=== PATIENT | female | born 1970 | race Caucasian/White ===

== ENCOUNTER → 2019-02-20 | Day surgery (SDC) | payer OTHER ==
[~2019-02-20] MED LIST: IV RINGERS,LACTATED 1000ML 1,000 ML IV SCH; LIDOCAINE 2% PF 5 ML VIAL. ONE; PROPOFOL 40 ML IV ONE
[2019-02-20 10:00] VITALS: BP 159/85
--- NOTE | 2019-02-23 14:06 | PATHOLOGY ---
[facility] Accession Number: [id number] . 01 Material submitted: . PART A: colon - RIGHT COLON BIOPSIES. Modifiers: right PART B: colon - TRANSVERSE COLON BIOPSIES. Modifiers: transverse PART C: colon - LEFT COLON BIOPSY. Modifiers: left . 01 Clinical history: . HX ulcerative colitis . 02 Diagnosis: A. Colonic mucosa "right colon biopsies": - No diagnostic changes of inflammatory bowel disease are seen. - There is no evidence of acute cryptitis, granulomas, adenomatous change, dysplasia or malignancy. . B. Colonic mucosa "transverse colon biopsies": - No obvious diagnostic changes of inflammatory bowel disease present. - There is no evidence of acute cryptitis, granulomas, adenomatous change, dysplasia or malignancy. . C. Colonic mucosa "left colon biopsies": - No obvious diagnostic changes of inflammatory bowel disease. - There is no evidence of acute cryptitis, granulomas, adenomatous change, dysplasia or malignancy. (SHA:pit; 02/23/2019) [facility] 02/23/2019 1318 Local . 02 Comment: History of ulcerative colitis noted. (SHA:[facility]; 02/23/2019) . 02 Electronically signed: . Sathya Mojica MD, Pathologist NPI- [id number] . 01 Gross description: . A. Received in formalin labeled "Christina, Neelam, right colon BX, rule out U/C," are multiple segments of johnson soft tissue measuring 2.0 x 0.6 x 0.2 cm in aggregate dimensions. The specimen is filtered and entirely submitted in cassette A1. . B. Received in formalin labeled "Christina, Neelam, transverse colon BX," are multiple segments of johnson soft tissue measuring 1.6 x 0.6 x 0.1 cm in aggregate dimensions. The specimen is filtered and entirely submitted in cassette B1. . C. Received in formalin labeled "Christina, Neelam, left colon BX, rule out UC," are multiple segments of johnson soft tissue measuring 1.4 x 0.6 x 0.1 cm in aggregate dimensions. The specimen is filtered and entirely submitted in cassette C1. (TSD; 02/20/2019) TOB/TOB 02/20/2019 2241 Local . 02 Pathologist provided ICD-10: Z87.19 . 02 CPT . 251188, 491622, 576884 Specimen Comment: A courtesy copy of this report has been sent to [phone], [phone] Specimen Comment: [id number] Specimen Comment: Report sent to / DR OVALLES Specimen Comment: A duplicate report has been generated due to demographic updates. Performed at: 01 [facility] [address], [place] [id number] MD Arsenio Mason MD Phone: [phone] Performed at: 02 [facility] [address] [place], [place] [id number] MD Reji Carlton MD Phone: [phone]
== END ==
LOC: ENDOS 07:19
PROVIDERS: ATTEND Internal Medicine Gastroenterology
DX: R10.32 Left lower quadrant pain (principal); K52.9 Noninfective gastroenteritis and colitis, unspecified; K64.0 First degree hemorrhoids; F15.90 Other stimulant use, unspecified, uncomplicated; F17.210 Nicotine dependence, cigarettes, uncomplicated; Z87.39 Personal history of other diseases of the musculoskeletal system and connective tissue; Z72.89 Other problems related to lifestyle; Z98.890 Other specified postprocedural states; Z90.710 Acquired absence of both cervix and uterus; Z98.51 Tubal ligation status; Z90.49 Acquired absence of other specified parts of digestive tract; Z96.652 Presence of left artificial knee joint
CPT/HCPCS: 45380; 88305; J2001; J2704

== ENCOUNTER 2019-12-21 07:26 | Emergency (ER) | payer OTHER ==
[~2019-12-21] VITALS: Ht 170.2 cm; Wt 84.0 kg
[2019-12-21 07:33] VITALS: BP 164/99
[2019-12-21] MEDS ORDERED: HYDROcodone/APAP 5/325MG 1 TAB TABLET PO ONE (08:00)
--- NOTE | 2019-12-21 08:33 | PHYS DOC ---
Past Medical History Past Medical History: Arthritis Past Surgical History: Appendectomy, Cholecystectomy, , Hip Replacement, Hysterectomy, Knee Replacement, Tonsillectomy Additional Past Surgical Histo: BILATERAL CARPAL TUNNEL Smoking Status: Current Every Day Smoker Alcohol Use: Occasionally General Adult EDM: Chief Complaint: ELBOW PROBLEM HPI: HPI: 49-year-old female past medical history significant for osteoarthritis presents the ED with complaints of right shoulder pain after patient fell last night around 11 PM. Patient states she fell on her right side and is having pain at the tip of her elbow and distal humerus, worsened with extension of the elbow. Is right-hand dominant. No prior injuries to this joint. Denies any radiculopathy. No recent antibiotics or fluoroquinolone use. Has not taken anything for the pain. ROS: Denies associated fever, chills, cough, sore throat, chest pain, dyspnea, radiculopathy, sensory or motor deficits, midline neck pain, headache, loss of consciousness, nausea, vomiting, diarrhea, abdominal or back pain, leg swelling, rash, hemoptysis or other joint involvement. Review of Systems: Review of Systems: Constitutional: Denies fever or chills. [] Eyes: Denies change in visual acuity. [] HENT: Denies nasal congestion or sore throat. [] Respiratory: Denies cough or shortness of breath. [] Cardiovascular: Denies chest pain or edema. [] GI: Denies abdominal pain, nausea, vomiting, Musculoskeletal: Denies back pain Integument: Denies rash. [] Neurologic: Denies headache, focal weakness or sensory changes. [] Psychiatric: Denies depression or anxiety. [] Current Medications: Current Medications Medications (Trade) Dose Ordered Sig/[facility] Start Time Stop Time Status Last Admin Dose Admin Acetaminophen/ Hydrocodone Bitart (Lortab 5/325) 1 tab 1X ONCE 12/21/19 08:00 12/21/19 08:01 DC Allergies: Allergies: Allergies Coded Allergies Type Severity Reaction Last Updated Verified venom-honey bee Allergy Severe SOA, Dizziness 02/20/19 Yes Physical Exam: PE: Constitutional: Well developed, well nourished, no acute distress, non-toxic appearance. [] HENT: Normocephalic, atraumatic, bilateral external ears normal, nose normal. [] Eyes: EOMI, conjunctiva normal, no discharge. [] Neck: Normal range of motion, no tenderness, supple, no stridor. [] Cardiovascular:Heart rate regular rhythm, no murmur [] Lungs & Thorax: Bilateral breath sounds clear to auscultation [] Abdomen: Bowel sounds normal, soft, no tenderness, no masses, no pulsatile masses. [] Skin: Warm, dry, no erythema, no rash. [] Back: No tenderness, no CVA tenderness, ttp over right olecranon-arm bent 90 degrees held across chest, is able to felx/extend/supinate and pronate right elbow - no pain at humeral insertion of biceps, no right shoulder/wrist pain, ttp over anterior distal arm w/no bruising Extremities: No tenderness, no cyanosis, no clubbing, ROM intact, no edema. [] Neurologic: Alert and oriented X 3, normal motor function, normal sensory function, no focal deficits noted. [] Psychologic: Affect normal, judgement normal, mood normal. [] Current Patient Data: Vital Signs: Vital Signs Date Time Temp Pulse Resp B/P (MAP) Pulse Ox O2 Delivery O2 Flow Rate FiO2 12/21/19 07:33 99.0 103 16 164/99 (120) 96 Room Air 99.0 EKG: EKG: [] Radiology/Procedures: Radiology/Procedures: IMAGING REPORT Signed PATIENT: LULU SAXENA ACCOUNT: [id number] : 1970 LOCATION: ER AGE: 49 SEX: F EXAM STATUS: REG ER ORD. PHYSICIAN: KAYLA TERRY DO REASON: fall PROCEDURE: FOREARM RIGHT FOREARM RIGHT, ELBOW RIGHT 3V, HUMERUS RIGHT DATE: 12/21/2019 7:51 AM INDICATION: fall, pain COMPARISON: None. FINDINGS: Bones: There is no evidence of acute fracture or dislocation. Joints: Mild degenerative changes of the acromioclavicular joint. Mild degenerative changes of the elbow joint. There is no joint effusion. Miscellaneous: None. IMPRESSION: No evidence of acute fracture. Electronically signed by: Krystle Adams MD (12/21/2019 8:52 AM) [id number] DICTATED and SIGNED BY: KRYSTLE ADAMS MD DATE: 12/21/19 0852 Course & Med Decision Making: Course & Med Decision Making Pertinent Labs and Imaging studies reviewed. (See chart for details) Concern for traumatic right elbow injury with distal humeral tenderness palpation over distal biceps -likely contusion but cannot exclude any tendon or ligament injury. Strict ED return precautions given for neurologic deficits or severe pain. Will manage conservatively with rice instructions and ibuprofen. encouraged urgent outpatient follow-up with PMD and Ortho. Life-threatening processes were considered but are low suspicion at this time, given history and physical exam. Pt was educated on all prescription medications and adverse effects. All patient's questions were answered and pt was stable at time of discharge. Differential includes fracture, dislocation, laceration, osteomyelitis, compartment syndrome, neurovascular injury or deficit, infection (abscess, cellulitis, septic arthritis), tendon or ligament injury. I spoken with the patient and her caregivers. I explained the patient's conditi on, diagnoses and treatment plan based on the information available to me at this time. I have answered the patient and her caregiver's questions and addressed any concerns. The patient and her caregivers have a good understanding of patient's diagnosis, condition and treatment plan as can be expected at this point. Vital signs have been stable. Patient's condition is stable and appropriate for discharge from the emergency department. Patient will pursue further outpatient evaluation with primary care physician or other designated or consulting physician as outlined in the discharge instructions. The patient and/or caregivers are agreeable to this plan of care and follow-up instructions have been explained in detail. The patient and/or caregivers have received these instructions in written form and have expressed an understanding of the discharge instructions. The patient and/or caregivers are aware that any significant change of condition or worsening of symptoms should prompt immediate return to this or the closest emergency department or call to 911. Sachin Disclaimer: Sachin Disclaimer: This electronic medical record was generated, in whole or in part, using a voice recognition dictation system. Departure Departure Impression: Primary Impression: Elbow pain, right Disposition: 01 HOME, SELF-CARE Condition: STABLE Referrals: SHRUTI OVALLES (PCP) Patient Instructions: Elbow Contusion Additional Instructions: Marcos Narvaez MD Orthopaedic Surgery Address: [address] [place] [id number] Scripts Ibuprofen (IBUPROFEN) 600 Mg Tablet 600 MG PO PRN Q6HRS PRN for PAIN, #20 TAB take with food or milk Prov: KAYLA TERRY DO 12/21/19 Justicifation of Admission Dx: Justifications for Admission: Justification of Admission Dx: N/A KAYLA TERRY DO Dec 21, 2019 08:33
--- NOTE | 2019-12-21 08:55 | RAD ---
FOREARM RIGHT, ELBOW RIGHT 3V, HUMERUS RIGHT DATE: 12/21/2019 7:51 AM INDICATION: fall, pain COMPARISON: None. FINDINGS: Bones: There is no evidence of acute fracture or dislocation. Joints: Mild degenerative changes of the acromioclavicular joint. Mild degenerative changes of the elbow joint. There is no joint effusion. Miscellaneous: None. IMPRESSION: No evidence of acute fracture. Electronically signed by: Larry Adams MD (12/21/2019 8:52 AM) [id number]
[2019-12-21] MEDS ORDERED: IBUP-1007 PO (09:10)
== END 2019-12-21 09:48 | disposition home or self-care (01) ==
LOC: ER 07:26
DX: M25.521 Pain in right elbow (principal); M25.511 Pain in right shoulder; M79.631 Pain in right forearm; M19.90 Unspecified osteoarthritis, unspecified site; F17.200 Nicotine dependence, unspecified, uncomplicated; Z90.49 Acquired absence of other specified parts of digestive tract; Z90.89 Acquired absence of other organs; Z90.710 Acquired absence of both cervix and uterus; Z98.890 Other specified postprocedural states
CPT/HCPCS: 73060; 73080; 73090; 99284; A4565

== ENCOUNTER → 2020-02-23 | Outpatient (CLI) | payer OTHER ==
[~2020-02-23] MED LIST changes: +IBUP-1007 PO; -IV RINGERS,LACTATED 1000ML 1,000 ML IV SCH; -LIDOCAINE 2% PF 5 ML VIAL. ONE; -PROPOFOL 40 ML IV ONE
--- NOTE | 2020-02-23 13:30 | RAD ---
EXAM: Nuclear gastric emptying scan. HISTORY: Epigastric pain. Nausea and vomiting. COMPARISON: None. TECHNIQUE: Serial static images were obtained over the stomach following oral administration of 2.0 mCi of 99m-Tc sulfur colloid in an egg based meal. FINDINGS: The stomach empties into the small bowel without evidence of reflux in the area of the esophagus. The estimated time for half emptying of gastric contents, i.e. 'gastric emptying time' is 51 minutes (normal is 66 +/- 22 minutes). There is 35 percent retained tracer activity within the stomach at one hour, 17 percent retained tracer activity within stomach at 2 hours, 6 percent retained tracer activity within the stomach at 3 hours on 2 percent retained tracer activity within stomach at 4 hours. IMPRESSION: Normal gastric emptying scan. Electronically signed by: Shanel Friedman MD (02/23/2020 1:26 PM) [id number]
== END ==
LOC: NM 08:48
PROVIDERS: ATTEND Internal Medicine Gastroenterology
DX: R11.2 Nausea with vomiting, unspecified (principal)
CPT/HCPCS: 78264; A9541

== ENCOUNTER 2021-04-04 12:24 | Emergency (ER) | payer OTHER ==
[~2021-04-04] VITALS: Ht 170.2 cm; Wt 84.0 kg
[2021-04-04 12:42] VITALS: BP 141/92
[2021-04-04] MEDS ORDERED: HYDROcodone/APAP 5/325MG 1 TAB TABLET PO ONE (13:15)
--- NOTE | 2021-04-04 13:41 | PHYS DOC ---
Past Medical History Past Medical History: Arthritis Past Surgical History: Cholecystectomy, , Hysterectomy, Knee Replacement, Tonsillectomy Additional Past Surgical Histo: BILATERAL CARPAL TUNNEL Smoking Status: Never Smoker Alcohol Use: Occasionally General Adult EDM: Chief Complaint: KNEE INJURY HPI: HPI: Patient is a 50 year old female who presents with right knee pain. Patient states that she was walking when she heard a pop behind her right knee. She has burning, pain behind her knee that radiates down her leg. Pain is increased with ambulation and improves with sitting patient's has history of arthritis in right knee. Denies taking anything for pain prior to arrival. No swelling noted. Range of motion intact. Review of Systems: Review of Systems: ROS At least 10 ROS systems have been reviewed and are negative except as documented in the HPI. General: Negative except as outlined in HPI above. Skin: Negative except as outlined in HPI above. HEENT: Negative except as outlined in HPI above. Neck: Negative except as outlined in HPI above. Respiratory: Negative except as outlined in HPI above.. Cardiovascular: Negative except as outlined in HPI above. Abdomen: Negative except as outlined in HPI above. : Negative except as outlined in HPI above. Back/MSK: Negative except as outlined in HPI above. Neuro: Negative except as outlined in HPI above. Psych: Negative except as outlined in HPI above. Heart Score: C/O Chest Pain: No Risk Factors: Risk Factors: DM, Current or recent (<one month) smoker, HTN, HLP, family history of CAD, obesity. Risk Scores: Score 0 - 3: 2.5% MACE over next 6 weeks - Discharge Home Score 4 - 6: 20.3% MACE over next 6 weeks - Admit for Clinical Observation Score 7 - 10: 72.7% MACE over next 6 weeks - Early Invasive Strategies Current Medications: Current Medications Medications (Trade) Dose Ordered Sig/Wild Start Time Stop Time Status Last Admin Dose Admin Acetaminophen/ Hydrocodone Bitart (Lortab 5/325) 1 tab PRN 1X ONCE 04/04/21 13:15 04/04/21 13:16 DC 04/04/21 13:26 1 TAB Allergies: Allergies: Allergies Coded Allergies Type Severity Reaction Last Updated Verified venom-honey bee Allergy Severe SOA, Dizziness 02/20/19 Yes Physical Exam: PE: Constitutional: Well developed, well nourished, no acute distress, non-toxic appearance. [] HENT: Normocephalic, atraumatic, bilateral external ears normal, oropharynx moist, no oral exudates, nose normal. [] Eyes: PERRLA, EOMI, conjunctiva normal, no discharge. [] Neck: Normal range of motion, no tenderness, supple, no stridor. [] Cardiovascular:Heart rate regular rhythm, no murmur [] Lungs & Thorax: Bilateral breath sounds clear to auscultation [] Abdomen: Bowel sounds normal, soft, no tenderness, no masses, no pulsatile masses. [] Skin: Warm, dry, no erythema, no rash. [] Back: No tenderness, no CVA tenderness. [] Extremities: Right knee tenderness, no cyanosis, no clubbing, ROM intact, no edema. [] Neurologic: Alert and oriented X 3, normal motor function, normal sensory function, no focal deficits noted. [] Psychologic: Affect normal, judgement normal, mood normal. [] Current Patient Data: Vital Signs: Vital Signs Date Time Temp Pulse Resp B/P (MAP) Pulse Ox O2 Delivery O2 Flow Rate FiO2 04/04/21 12:42 98.1 88 16 141/92 (108) 97 Room Air 98.1 EKG: EKG: [] Radiology/Procedures: Radiology/Procedures: []EXAM: AP, lateral and oblique views of the right knee DATE: 04/04/2021 1:16 PM INDICATION: Reason: pain, pt heard pop last night now unable to walk on without pain. / Spl. Instructions: / History: COMPARISON: No Prior FINDINGS: No acute fracture or dislocation. Small joint effusion. Joint spaces are preserved without significant degenerative/proliferative change. Neutral patellar tracking. IMPRESSION: No acute fracture or dislocation. Small joint effusion Electronically signed by: Vel Franklin MD (04/04/2021 2:18 PM) [facility]: US DPLX VENOUS EXTREMITY LOWER RT (LOWER EXTREMITY VENOUS ULTRASOUND) CLINICAL HISTORY: Right lower extremity pain TECHNIQUE: Sonographic grayscale images obtained of the right lower extremity deep venous system with color flow Doppler, compression, and augmentation techniques as indicated. Images obtained and stored in a permanent archive. COMPARISON: None FINDINGS: No evidence of absent flow or incompressibility within the common femoral vein, femoral vein, or popliteal vein. Visualized calf veins appear patent on limited evaluation. IMPRESSION: No evidence of right lower extremity DVT. Electronically signed by: Ervin Burkett DO (04/04/2021 4:23 PM) [facility] Course & Med Decision Making: Course & Med Decision Making Pertinent Labs and Imaging studies reviewed. (See chart for details) [] 50-year-old female presents with right knee pain. X-ray of right knee ordered to rule out acute abnormality. Patient denies needing anything for pain at this time. Right knee x-ray unremarkable. Explained to patient based on presentation and symptoms she most likely had a ruptured cyst. Discussed results with patient. Patient has no history of DVT, no recent travel. Patient satting 97%, room air, heart rate 88. Wells and PERC negative. Ultrasound is negative for DVT. Discussed results with patient. Again explained to patient she most likely had a Brower's cyst rupture. Ibuprofen at home for pain. Educated on RICE. Cruthches and knee brace provided to patient. Advised patient she should follow-up with PCP in 2 to 3 days for further imaging. Patient agrees with discharge plan and understands discharge instructions. Sachin Disclaimer: Sachin Disclaimer: This electronic medical record was generated, in whole or in part, using a voice recognition dictation system. Departure Departure Impression: Primary Impression: Knee pain, right Qualified Codes: M25.561 - Pain in right knee Disposition: 01 HOME / SELF CARE / HOMELESS Condition: STABLE Referrals: SHRUTI OVALLES (PCP) Patient Instructions: Knee Pain, RICE - Routine Care for Injuries, [id number] Additional Instructions: You are seen in the emergency room for right knee pain. X-ray was negative for any acute abnormality. Take ibuprofen at home for pain. Rest, use ice to the area, elevate. Please follow-up with your PCP for further management if pain does not improve. You may possibly need additional imaging. Return to the emergency room if you have worsening symptoms or concerns. EMERGENCY DEPARTMENT GENERAL DISCHARGE INSTRUCTIONS Thank you for coming to [facility] Emergency Department (ED) today and trusting us with you care. We trust that you had a positive experience in our Emergency Department. If you wish to speak to the department management, you may call the Director at [phone]. YOUR FOLLOW UP INSTRUCTIONS ARE FOLLOWS: 1. Do you have a private Doctor? If you do not have a private doctor, please ask for a resource list of physicians or clinics that may be able to assist you with follow up care. 2. The Emergency Physicain has interpreted your x-rays. The X-Ray specialist will also review them. If there is a change in the findings, you will be notified in 48 hours when at all possible. 3. A lab test or culture has been done, your results will be reviewed and you will be notified if you need a change in treatment. ADDITIONAL INSTRUCTIONS AND INFORMATION: 1. Your care today has been supervised by a physician who is specially trained in emergency care. Many problems require more than one evaluation for a complete diagnosis and treatment. We recommend that you schedule your follow up appointment as recommended to ensure complete treatment of you illness or injury. If you are unable to obtain follow up care and continue to have a problem, or if your condition worsens, we recommend that you return to the ED. 2. We are not able to safely determine your condition over the phone nor are we able to give sound medical advice over the phone. For these safety reasons, if you call for medical advice we will ask you to come to the ED for further evaluation. 3. If you have any questions regarding these discharge instructions please call the ED at [phone]. SAFETY INFORMATION: In the interest of safety, wellness, and injury prevention; we encourage you to wear your sealbelt, if you smoke; quite smoking, and we encourage family to use a protective helmet for bicycling and other sporting events that present an increased risk for head injury. IF YOUR SYMPTOMS WORSEN OR NEW SYMPTOMS DEVELOP, OR YOU HAVE CONCERNS ABOUT YOUR CONDITION; OR IF YOUR CONDITION WORSENS WHILE YOU ARE WAITING FOR YOUR FOLLOW UP APPOINTMENT; EITHER CONTACT YOUR PRIMARY CARE DOCTOR, THE PHYSICIAN WHOSE NAME AND NUMBER YOU WERE GIVEN, OR RETURN TO THE ED IMMEDIATELY. JOSE LUIS JUAN APRN Apr 04, 2021 13:41
--- NOTE | 2021-04-04 14:21 | RAD ---
EXAM: AP, lateral and oblique views of the right knee DATE: 04/04/2021 1:16 PM INDICATION: Reason: pain, pt heard pop last night now unable to walk on without pain. / Spl. Instruct ions: / History: COMPARISON: No Prior FINDINGS: No acute fracture or dislocation. Small joint effusion. Joint spaces are preserved without significan t degenerative/proliferative change. Neutral patellar tracking. IMPRESSION: No acute fracture or dislocation. Small joint effusion Electronically signed by: Vel Franklin MD (04/04/2021 2:18 PM) [place]
--- NOTE | 2021-04-04 16:25 | RAD ---
EXAMINATION: US DPLX VENOUS EXTREMITY LOWER RT (LOWER EXTREMITY VENOUS ULTRASOUND) CLINICAL HISTORY: Right lower extremity pain TECHNIQUE: Sonographic grayscale images obtained of the right lower extremity deep venous system with color flow Doppler, compression, and augmentation techniques as indicated. Images obtained and stor ed in a permanent archive. COMPARISON: None FINDINGS: No evidence of absent flow or incompressibility within the common femoral vein, femoral vein, or popl iteal vein. Visualized calf veins appear patent on limited evaluation. IMPRESSION: No evidence of right lower extremity DVT. Electronically signed by: Ervin Burkett DO (04/04/2021 4:23 PM) ELBA
== END 2021-04-04 17:32 | disposition home or self-care (01) ==
LOC: ER 12:24
DX: M25.561 Pain in right knee (principal); Z91.030 Bee allergy status; X50.9XXA Other and unspecified overexertion or strenuous movements or postures, initial encounter; Y92.89 Other specified places as the place of occurrence of the external cause; Y93.01 Activity, walking, marching and hiking; Y99.8 Other external cause status
CPT/HCPCS: 73564; 93971; 99284-25

== ENCOUNTER → 2021-04-19 | Outpatient (CLI) | payer OTHER ==
[2021-04-04 12:42] VITALS: BP 141/92
--- NOTE | 2021-04-19 17:46 | KCIC ---
STUDY: MRI of the right knee without contrast INDICATION: Knee pain. COMPARISON: Right knee radiographs 04/04/2021 TECHNIQUE: Multiplanar MR imaging of the right knee performed without the use of intravenous or intra -articular contrast. FINDINGS: Menisci: No discrete tear of either the medial or lateral menisci. Thin longitudinal signal elevation at the lateral meniscus anterior root insertion favored physiologic from dispersion of fibers and he terogeneity at the lateral meniscus posterior root insertion from obliquity. Intact lateral meniscus posterior root insertional fibers are seen on image 10 series 8. Cruciate ligaments: Intact. Collateral ligaments: Intact medial and lateral collateral ligaments. Trace amount of TCL bursal flui d. Intact retinacula and IT band. Tendons: Mild distal quadriceps tendinosis at its lateral margin, image 5 series 4. Unremarkable phelps llar tendon and additional tendons surrounding the knee. Cartilage: Patellofemoral: Partial thickness chondrosis which is focally high-grade at the upper aspect of the p atellar median ridge, image 8 series 4. Chondral fissuring at the periphery of the lateral patellar f acet and at the upper trochlear groove. Lateral compartment: Partial thickness chondrosis best appreciated at the proximal nonweightbearing l ateral femoral condyle and posterior margin of the lateral tibial plateau adjacent to the meniscus po sterior horn, image 18 series 7. Medial compartment: Partial thickness chondrosis best seen at the proximal nonweightbearing medial fe moral condyle, image 9 series 9. Bones: No fracture or focally aggressive marrow signal abnormality. Trace degenerative subchondral si gnal at the upper patellar median ridge and beneath the lateral meniscus posterior horn. Tiny osteoph ytes and a degenerative osseous excrescence off the posterior. Miscellaneous: Small joint effusion. Loculated ganglion cyst adjacent to the lateral gastrocnemius or igin measuring up to 2.7 x 1.3 x 1.7 cm. IMPRESSION: 1. The medial and lateral menisci are intact as are the cruciate and collateral ligaments. 2. Tricompartmental chondrosis, as discussed above, which is primarily partial-thickness and with mi nimal degenerative subchondral signal at the upper margin of the patellar median ridge and posteromed ial aspect of the lateral tibial plateau. 3. Small joint effusion. Loculated ganglion cyst at the lateral gastrocnemius origin. Electronically signed by: VERONICA CHAUDHARY MD (04/19/2021 5:43 PM) [id number]
== END ==
LOC: KCIC MRI 12:57
PROVIDERS: ATTEND Family Medicine
DX: M94.261 Chondromalacia, right knee (principal); M25.461 Effusion, right knee; M67.461 Ganglion, right knee; M76.51 Patellar tendinitis, right knee; M25.861 Other specified joint disorders, right knee
CPT/HCPCS: 73721

== ENCOUNTER → 2021-06-14 | Outpatient (CLI) | payer OTHER ==
[~2021-06-14] MED LIST changes: +EXEN2AUT SQ; +HYDR-2761 PO; +MULT-496 PO
== END ==
LOC: LAB 10:38
PROVIDERS: ATTEND Orthopaedic Surgery
DX: Z01.812 Encounter for preprocedural laboratory examination (principal); Z20.822 Contact with and (suspected) exposure to COVID-19
CPT/HCPCS: U0003

== ENCOUNTER 2021-06-16 11:12 | Day surgery (SDC) | payer OTHER ==
[~2021-06-16] VITALS: Ht 167.6 cm; Wt 85.0 kg
[~2021-06-16 11:12] MED LIST changes: +BUPIVACAINE-EPI 0.25%-1:200000 MPF 30 ML VIAL. ONE; -EXEN2AUT SQ; -HYDR-2761 PO; +HYDROmorphone 2 MG/ML INJ. IVP PRN; +IV RINGERS,LACTATED 1000ML 1,000 ML IV SCH; +MORPHINE SULFATE 2 MG/ML INJ. IVP PRN; -MULT-496 PO; +PROCHLORPERAZINE 10 MG/2 ML VIAL. IVP PRN; +fentaNYL PF VIAL 100 MCG/2 ML VIAL IVP PRN
[2021-06-16 11:37] VITALS: BP 142/86
[2021-06-16] MEDS ORDERED: MULT-496 PO (11:43)
[2021-06-16] MEDS ORDERED: EXEN2AUT SQ (11:46)
[2021-06-16] MEDS ORDERED: ONDANSETRON PF 4 MG/2 ML VIAL. ONE (12:19)
[2021-06-16] MEDS ORDERED: LIDOCAINE 2% PF 5 ML VIAL. ONE (12:19)
[2021-06-16] MEDS ORDERED: SEVOFLURANE 61 TO 120 MINUTES. IH ONE (12:19)
[2021-06-16] MEDS ORDERED: DEXAMETHASONE SOD PHOS 4 MG/ML VIAL ONE (12:19)
[2021-06-16] MEDS ORDERED: PROPOFOL 10 MG/ML (20ML) VIAL. IV ONE (12:19)
[2021-06-16] MEDS ORDERED: fentaNYL PF VIAL 100 MCG/2 ML VIAL ONE ×2 (12:20→14:37)
--- NOTE | 2021-06-16 14:20 | PDOC4 ---
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 DO Jun 16, 2021 14:20
[2021-06-16] MEDS ORDERED: HYDR-2761 PO (14:22)
--- NOTE | 2021-06-16 14:25 | DISCH ---
DISCHARGE INSTRUCTIONS Condition on Discharge Condition on Discharge: Stable Activity After Discharge Activity Instructions for Disc: Resume previous activity, Avoid exertion Driving Instructions after Dis: Do not drive today Weight Bearing Status after Di: Full weight bearing Wound Incision Care Wound/Incision Care: Ice to area for comfort, Keep wound elevated, Change dressing Other wound/incision instructi: May change dressings to Band-Aid postoperative day #3 Follow-Up Follow up with: Dr. Jaramillo in 10 to 14 days LEIGHTON JARAMILLO Jr. DO Jun 16, 2021 14:25
[2021-06-16] MEDS: fentaNYL PF VIAL 100 MCG/2 ML VIAL IVP PRN ×2 (14:40→15:09)
[2021-06-16] MEDS ORDERED: HYDROcodone/APAP 5/325MG 1 TAB TABLET ONE (15:07)
[2021-06-16] MEDS ORDERED: HYDROcodone/APAP 5/325MG 1 TAB TABLET PO ONE (15:15)
[2021-06-16 15:25] VITALS: BP 160/84
--- NOTE | 2021-06-16 15:34 | OP ---
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 POSTOPERATIVE DIAGNOSIS: Degenerative joint disease, right knee secondary to rheumatoid arthritis. PROCEDURE: Right knee arthroscopy with chondral debridement, synovectomy. SURGEON: Roger Moore Jr, DO CUSTODIAL SERVICES MANAGER: Lew Steele. ANESTHESIA: General. COMPLICATIONS: None. ESTIMATED BLOOD LOSS: 20 mL. DESCRIPTION OF PROCEDURE: The patient was taken to the operative suite, given a general anesthetic. Right lower extremity was placed in a knee moore, prepped and draped in a sterile fashion. Inferomedial and inferolateral portals were established. Knee was insufflated with saline. Visualization of the patellofemoral joint, noted this to have some degenerative changes, grade 3 with some unstable areas of the femoral sulcus. This was debrided back to stable chondral surfaces. No bone was exposed on this or the side of the patella at this point with slight lateral tilt noted only. Scope was then taken into the medial and lateral gutters. No loose bodies were noted. Upon entering the knee, debridement was undertaken in the medial femoral condyle, which had a large unstable flap tear; however, this is not down to bone at this point. Tibial side had changes, but were not significant enough to debride at this point. No unstable fragments. The ACL and the PCL appeared completely intact and stable with probing. The lateral compartment also noted some degenerative changes, grade 2 and grade 3 on the lateral femoral condyle, but again, nothing significant at this point down to bone. The unstable areas were debrided. Tibial side was intact and the meniscus was noted to be intact as well. No further problems were noted as it was reinspected one more time before removal of the instrumentation after this was thoroughly irrigated and suctioned dry. The instruments were again removed. The wounds were then reapproximated in an interrupted fashion using 3-0 nylon. The local was placed in the portal sites at this point. Sterile dressing was applied. The patient was then taken from the operative bed to the postoperative bed, taken to the PACU in stable condition. DANIKA DR: Francine TID: [id number]
== END 2021-06-16 15:45 | disposition home or self-care (01) ==
LOC: SURG 11:12
PROVIDERS: ATTEND Orthopaedic Surgery
DX: M17.11 Unilateral primary osteoarthritis, right knee (principal); E66.9 Obesity, unspecified; Z98.51 Tubal ligation status; Z90.710 Acquired absence of both cervix and uterus; Z98.890 Other specified postprocedural states; Z79.899 Other long term (current) drug therapy; Z87.891 Personal history of nicotine dependence; Z72.89 Other problems related to lifestyle
CPT/HCPCS: 29877; A4930; A6223; A6253; J0690; J1100; J2405; J2704; J3010; J3490; A6455